=== PATIENT | female | born 1965 | race Two or more races ===

== ENCOUNTER 2024-10-29 14:21 | Emergency (ER) | payer MEDICAID ==
[~2024-10-29] VITALS: Ht 157.5 cm; Wt 93.4 kg
[2024-10-29] MEDS ORDERED: HYDROCODONE/APAP 5/325MG TABLET ONE (15:58)
[2024-10-29] MEDS: HYDROCODONE/APAP 5/325MG TABLET PO ONE (16:00)
[2024-10-29] MEDS ORDERED: HYDR-3980 PO (17:34)
[2024-10-29 17:45] VITALS: BP 172/99; TEMP 98.2; O2SAT 98
== END 2024-10-29 17:46 | disposition home or self-care (01) ==
LOC: ER 14:41
DX: S20.212A Contusion of left front wall of thorax, initial encounter (principal); R07.89 Other chest pain; E11.9 Type 2 diabetes mellitus without complications; I10 Essential (primary) hypertension; W01.0XXA Fall on same level from slipping, tripping and stumbling without subsequent striking against object, initial encounter; Y93.89 Activity, other specified; Y92.89 Other specified places as the place of occurrence of the external cause; Y99.8 Other external cause status
CPT/HCPCS: 71250-TC